=== PATIENT | female | born 1980 | race Caucasian/White ===

== ENCOUNTER 2022-09-15 16:40 | Emergency (ER) | payer BC, OTHER ==
[2022-09-15] MEDS ORDERED: Lactated Ringers 1,000 ML IV STA (18:11)
[2022-09-15 18:42] LABS: CARBON DIOXIDE,CO2 24.6 mmol/L (21.0-32.0); POTASSIUM,K 3.9 mmol/L (3.5-5.1)
[2022-09-15 20:10] VITALS: BP 134/89; PULSE 89
== END 2022-09-15 20:19 | disposition home or self-care (01) ==
LOC: MW.ED 16:40
DX: R55 Syncope and collapse (principal); D64.9 Anemia, unspecified; J45.909 Unspecified asthma, uncomplicated; E66.9 Obesity, unspecified; Z68.39 Body mass index [BMI] 39.0-39.9, adult; Z79.899 Other long term (current) drug therapy; Z20.822 Contact with and (suspected) exposure to COVID-19
CPT/HCPCS: 36415; 71045; 76830; 80053; 82947; 83735; 84443; 84484; 84703; 85025; 87635; 93005; 96360; 96361; 99284; J7120; U0002

== ENCOUNTER 2022-10-16 11:34 | Day surgery (SDC) | payer BC ==
[~2022-10-16 11:34] MED LIST: Albuterol 0.083% 2.5 MG/3 ML Neb Soln NEB PRN; HYDROmorphone 1 MG/ML Syringe IVPUSH PRN; Metoclopramide 10 MG/2 ML SDV IVPUSH PRN; Morphine 2 MG/ML SYRINGE IVPUSH PRN; Naloxone 0.4 MG/ML SDV IVPUSH PRN; Ondansetron 4 MG/2 ML SDV IVPUSH PRN; Sodium Chloride 0.9% 10 ML Syringe FLUSH PRN; Sodium Chloride 0.9% 2.5 ML Syringe FLUSH PRN; Sodium Chloride 0.9% 20 ML SDV IV PRN; fentaNYL 50 MCG/ML SDV IVPUSH PRN
[2022-10-16] MEDS ORDERED: Propofol 200 MG/20 ML SDV ONE ×2 (12:13→13:00)
[2022-10-16] MEDS ORDERED: fentaNYL 100 MCG/2 ML SDV ONE (12:13)
[2022-10-16] MEDS ORDERED: Ketorolac 30 MG/ML SDV ONE (13:09)
[2022-10-16] MEDS ORDERED: Ondansetron 4 MG/2 ML SDV ONE (13:09)
[2022-10-16] MEDS ORDERED: Lactated Ringers 1,000 ML IV SCH (13:15)
[2022-10-16 13:43] VITALS: PULSE 68
[2022-10-16 15:12] VITALS: BP 112/69
== END 2022-10-16 15:05 | disposition home or self-care (01) ==
LOC: MW.SDS 11:34
PROVIDERS: ATTEND Obstetrics & Gynecology
DX: N72 Inflammatory disease of cervix uteri (principal); N93.9 Abnormal uterine and vaginal bleeding, unspecified; D50.9 Iron deficiency anemia, unspecified; K21.9 Gastro-esophageal reflux disease without esophagitis; E66.9 Obesity, unspecified; J45.909 Unspecified asthma, uncomplicated; Z79.899 Other long term (current) drug therapy; Z98.890 Other specified postprocedural states
CPT/HCPCS: 58563; 58999; J1885; J2405; J2704; J3010; J7120